=== PATIENT | female | born 1990 | race Caucasian/White ===

== ENCOUNTER 2021-06-15 07:57 | Inpatient (IN) ==
--- NOTE | 2021-06-15 08:22 | History & Physical Report ---
Date of Service June 15, 2021 Assessment & Plan (1) Normal in third trimester: History of Present Illness Chief Complaint: Labor Check Primary Care Provider: NO PCP 31yo Female here for labor check at 40wks. Denies bleeding or fluid discharge, regular movement and contractions. Has had regular care, no complications. Rubella non-immune. GBS -. Blood Type O Positive 11/06/20 Antibody Screen NEGATIVE 11/06/20 Hemoglobin 11.3 g/dL (12.0-16.0) L 03/27/21 Hematocrit 36.0 % (37-47) L 03/27/21 Mean Corpuscular Volume 86.7 fL (80-100) 11/06/20 Platelet Count 362 K/uL (130-400) 11/06/20 Rubella IgG Antibody Equivocal (Immune) L 11/06/20 Rapid Plasma Reagin Nonreactive (Nonreactive) 11/06/20 Hepatitis B Surface Antigen Neg (Neg) 11/06/20 HIV (1&2) Ab and P24 Ag, 4th Gener Neg (Neg) 11/06/20 Glucose 1 Hour 50 gm Load 143 mg/dl (70-130) H 03/27/21 OB Optional Labs: Chlamydia trachomatis RNA NOT DETECTED (NOT DETECTED) 11/06/20 Neisseria gonorrhoeae RNA NOT DETECTED (NOT DETECTED) 11/06/20 Allergies Allergy/AdvReac Type Severity Reaction Status Date / Time No Known Allergies Allergy Verified 06/12/21 10:30 Home Medications Medication Instructions Recorded Confirmed Type prenat.vits,sofie,qoc-[id number] 1 tab PO DAILY 10/26/20 06/15/21 History breast pump #1 ea 06/08/21 06/12/21 Rx Patient History Medical History Complete No known problems Surgical History H/O wisdom tooth extraction Family History Family/Other Breast cancer Maternal great grandmother Mother Thyroid cancer Denies family history of Ovarian cancer Colorectal cancer Uterine cancer Social History (Updated 06/15/21 @ 08:15 by Rowena Carrillo RN) Smoking Status: Never smoker Second Hand Exposure: No; Hx Alcohol Use: No Hx Substance Use: No Preferred Language: Swazi Communication Ability: Effective Visual Impairment: No Limitations Hearing Ability: Normal Insulation Sprayer Required: No Beliefs That Will Affect Care: None marital status: marital status details: Teto (28) [phone] Current Living Situation: Spouse Current Living Situation Comment: lives with spouse, 2 dogs, 2 cats, spouse to change litter. 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 Denies breast pain. Denies dysuria. Denies headache or changes in vision. Physical Exam Physical Exam: General: Alert, oriented. No acute distress. Cardiac: Regular rate and rhythm, no murmurs/rubs/gallops. Respiratory: Clear to auscultation bilaterally a/p, no wheezes/rales/rhonchi. No increased work of breathing. Symmetrical chest rise. No respiratory distress. Pelvic: Dilation 3 cm; Effacement 90; Station -[address] Meyer Lower Extremities: No lower extremity edema or swelling. No deep calf pain. Craig's negative bilaterally Baseline:130 Variability:moderate Accelerations:present Decelerations:none Results & Data ([facility]) Vital Signs (Past 12 Hours) Vital Signs Pulse BP 06/15/21 08:05 112 H 139/86 Supervising Physician Co-Signing Physician Notes Resident Physician Supervision Note: I interviewed and examined the patient. Discussed with Dr. Gil and agree with findings and plan as documented in the note. Any exceptions or clarifications are listed here: 31 y/o at 40 wga presents in labor. Initially was 3cm, progressed to 3-4 on nursing check approx 1hr later and was admitted. PNI: Rubella nonimmune. Pt desires epidural, continue expectant management. GBS neg Documented By: Carey Meyer MD Resident Activity Tracking Resident Involvement: Resident Care Provided Care Provided: [facility]
[2021-06-15] MEDS ORDERED: OXYTOCIN 30 UNITS/500 ML BAG IV PRN ×2 (09:30→20:49)
[2021-06-15 09:59] LABS: Hematocrit (blood only) 35.9 % (37-47); Hemoglobin 11.5 g/dL (12.0-16.0); Mean Corpuscular Hemoglobin 27.3 pg (25-34); Mean Corpuscular Volume 85.1 fL (80-100); Mean Platelet Volume 10.7 fL (7.4-10.4); Platelet Count 312 K/uL (130-400); RDW Coefficient of Variation 15.5 % (11.5-14.5); RDW Standard Deviation 47.7 fL (36.4-46.3); Red Blood Count 4.22 M/uL (4.2-5.4)
[2021-06-15] MEDS: LACTATED RINGER'S 1,000 ML IV PRN ×4 (10:21→22:29)
[2021-06-15] MEDS ORDERED: BUPIVACAINE 0.25% 30 ML VIAL ONE ×2 (10:23→16:55)
[2021-06-15] MEDS ORDERED: ePHEDrine sulfate 50 MG/ML AMP ONE (10:23)
[2021-06-15] MEDS ORDERED: SODIUM CHLORIDE 0.9% INJ 10 ML VIAL ONE ×2 (10:23→16:56)
[2021-06-15] MEDS ORDERED: fentaNYL citrate 100 MCG/2 ML VIAL ONE (10:24)
[2021-06-15] MEDS ORDERED: fentaNYL 2MCG/ML ROPIVACAINE 1.25MG/ML 100 ML BAG EPI ONE (10:26)
[2021-06-15] MEDS ORDERED: diphenhydrAMINE 50 MG/ML VIAL IV PRN (10:37)
[2021-06-15] MEDS ORDERED: NALBUPHINE HCL INJ 10 MG/ML AMP IV PRN (10:37)
[2021-06-15] MEDS ORDERED: ePHEDrine sulfate 50 MG/ML AMP IV PRN (10:37)
[2021-06-15] MEDS ORDERED: NALOXONE HCL 0.4 MG/1 ML VIAL/CARP IV PRN (10:37)
[2021-06-15] MEDS ORDERED: NALOXONE HCL 1 MG in SODIUM CHLORIDE 0.9% 1000ML 1,000 ML IV PRN (10:37)
--- NOTE | 2021-06-15 10:37 | Anesthesiology Consultation ---
Date of Service June 15, 2021 Assessment & Plan (1) Encounter for pre-operative examination: Chart Review Chart Review: Acceptable Risk for Surgery and Patient NOT seen in Pre Admission Testing Consults Requested none History Height/Weight Height: 5 ft 2 in Weight: 74.117 kg Allergies Allergy/AdvReac Type Severity Reaction Status Date / Time No Known Allergies Allergy Verified 06/12/21 10:30 Medications Home Medications Medication Instructions Recorded Confirmed Last Taken prenat.vits,sofie,dic-yssi-tvqqf 1 tab PO DAILY 10/26/20 06/15/21 06/14/21 21:00 breast pump #1 ea 06/08/21 06/12/21 Unknown Active Medications Generic Name Dose Route Start Last Admin Trade Name Freq PRN Reason Stop Dose Admin Lactated Ringer's 1,000 mls @ 125 mls/hr 06/15/21 09:30 06/15/21 10:21 Lr IV 06/17/21 09:29 999 mls/hr .Q8H PRN Administration L&D Protocol Protocol Past Medical History Medical History Complete No known problems Past Family History Family History Family/Other Breast cancer Maternal great grandmother Mother Thyroid cancer Denies family history of Ovarian cancer Colorectal cancer Uterine cancer Past Surgical History Surgical History H/O wisdom tooth extraction Social History Smoking Status: Never smoker Hx Alcohol Use: No Hx Substance Use: No substance use type: does not use Physical Exam Vital Signs Last Vital Signs Temp 98.1 F 06/15/21 08:27 Pulse 112 H 06/15/21 08:05 Resp 20 06/15/21 08:27 BP 139/86 06/15/21 08:05 Testing Laboratory Results 06/15/21 09:45
[2021-06-15] MEDS ORDERED: TERBUTALINE SULFATE 1 MG/ML VIAL ONE (11:17)
--- NOTE | 2021-06-15 13:38 | Labor Progress Brief Note ---
Date of Service June 15, 2021 Subjective Comfortable w/ epidural. Approx 2hrs ago had long decel shortly following epidural and period of spontaneous tachysystole, resolved w/ fluid and repositioning Assessment & Plan (1) : Plan: 31 y/o at 40 wga in labor VSS, somewhat tachy but suspect pt is dehydrated as urine output not much and pt has not had much PO intake Fetus cat 2 but reassuring Labor - progressing spontaneously, now s/p arom. Continue to monitor gbs neg epidural in place Admission and Anticipated Discharge Date Admission Date: June 15, 2021 Physical Exam Genitourinary: Manual OB Exam: + cervical dilation (4-5), + cervical effacement 80%, + station -2 and + amniotic fluid (AROM clear, ?thin mec) OB Exam Monitor Tracing: + external FHT monitor used, + external uterine monitor used (q3-7) and + category I (125/mod/+accel, variable noted w/ arom) Results & Data ([facility]) Vital Signs (Past 12 Hours) Vital Signs Temp Pulse Resp BP Pulse Ox 06/15/21 13:32 136 H 95 06/15/21 13:27 143 H 99 06/15/21 13:24 131 H 132/76 06/15/21 13:22 143 H 98 06/15/21 13:17 141 H 98 06/15/21 13:12 136 H 95 06/15/21 13:10 134 H 127/68 06/15/21 13:07 130 H 97 06/15/21 13:02 128 H 97 06/15/21 12:57 110 H 97 06/15/21 12:53 123 H 123/69 06/15/21 12:52 115 H 97 06/15/21 12:47 105 H 97 06/15/21 12:42 107 H 97 06/15/21 12:38 117 H 122/71 06/15/21 12:37 110 H 98 06/15/21 12:32 117 H 97 06/15/21 12:27 115 H 99 06/15/21 12:23 118 H 129/75 06/15/21 12:22 124 H 98 06/15/21 12:17 126 H 100 06/15/21 12:12 114 H 99 06/15/21 12:08 102 H 130/73 06/15/21 12:07 92 H 98 06/15/21 12:02 98 H 97 06/15/21 11:57 99 H 99 06/15/21 11:53 100 H 129/70 06/15/21 11:52 110 H 99 06/15/21 11:47 107 H 100 06/15/21 11:42 109 H 100 06/15/21 11:38 99 H 130/79 06/15/21 11:37 99 H 99 06/15/21 11:32 98 H 99 06/15/21 11:27 106 H 99 06/15/21 11:23 103 H 131/73 06/15/21 11:22 122 H 100 06/15/21 11:17 118 H 123/75 100 06/15/21 11:15 88 119/66 06/15/21 11:13 93 H 107/63 06/15/21 11:12 109 H 97 06/15/21 11:11 92 H 126/76 06/15/21 11:09 96 H 126/78 06/15/21 11:07 101 H 135/82 99 06/15/21 11:05 96 H 128/78 06/15/21 11:03 108 H 127/78 06/15/21 11:02 101 H 100 06/15/21 11:01 102 H 134/85 06/15/21 10:59 100 H 132/82 06/15/21 10:57 100 H 143/78 H 100 06/15/21 10:52 79 128/69 100 06/15/21 10:47 91 H 100 06/15/21 10:41 87 138/75 06/15/21 08:27 98.1 F 20 06/15/21 08:05 112 H 139/86 Coding Level of Care Code None Diagnoses Z34.90
--- NOTE | 2021-06-15 13:58 | Labor Progress Brief Note ---
Date of Service June 15, 2021 Subjective about 10 min following arom there was decel for about 5 min Assessment & Plan (1) : Plan: 31 y/o at 40 wga in labor VSS, somewhat tachy but suspect pt is dehydrated as urine output not much and pt has not had much PO intake Fetus cat 2 but reassuring Labor - progressing spontaneously, now s/p arom. decel x 5 min, resolved with repositioning to knee-chest, IVF, O2. Continue to monitor gbs neg epidural in place Admission and Anticipated Discharge Date Admission Date: June 15, 2021 Results & Data ([facility]) Vital Signs (Past 12 Hours) Vital Signs Temp Pulse Resp BP Pulse Ox 06/15/21 13:55 138 H 90 06/15/21 13:53 130 H 130/75 06/15/21 13:52 131 H 100 06/15/21 13:47 131 H 100 06/15/21 13:42 117 H 98 06/15/21 13:39 122 H 127/69 06/15/21 13:37 127 H 98 06/15/21 13:32 136 H 95 06/15/21 13:27 143 H 99 06/15/21 13:24 131 H 132/76 06/15/21 13:22 143 H 98 06/15/21 13:17 141 H 98 06/15/21 13:12 136 H 95 06/15/21 13:10 134 H 127/68 06/15/21 13:07 130 H 97 06/15/21 13:02 128 H 97 06/15/21 12:57 110 H 97 06/15/21 12:53 123 H 123/69 06/15/21 12:52 115 H 97 06/15/21 12:47 105 H 97 06/15/21 12:42 107 H 97 06/15/21 12:38 117 H 122/71 06/15/21 12:37 110 H 98 06/15/21 12:32 117 H 97 06/15/21 12:27 115 H 99 06/15/21 12:23 118 H 129/75 06/15/21 12:22 124 H 98 06/15/21 12:17 126 H 100 06/15/21 12:12 114 H 99 06/15/21 12:08 102 H 130/73 06/15/21 12:07 92 H 98 06/15/21 12:02 98 H 97 06/15/21 11:57 99 H 99 06/15/21 11:53 100 H 129/70 06/15/21 11:52 110 H 99 06/15/21 11:47 107 H 100 06/15/21 11:42 109 H 100 06/15/21 11:38 99 H 130/79 06/15/21 11:37 99 H 99 06/15/21 11:32 98 H 99 06/15/21 11:27 106 H 99 06/15/21 11:23 103 H 131/73 06/15/21 11:22 122 H 100 06/15/21 11:17 118 H 123/75 100 06/15/21 11:15 88 119/66 06/15/21 11:13 93 H 107/63 06/15/21 11:12 109 H 97 06/15/21 11:11 92 H 126/76 06/15/21 11:09 96 H 126/78 06/15/21 11:07 101 H 135/82 99 06/15/21 11:05 96 H 128/78 06/15/21 11:03 108 H 127/78 06/15/21 11:02 101 H 100 06/15/21 11:01 102 H 134/85 06/15/21 10:59 100 H 132/82 06/15/21 10:57 100 H 143/78 H 100 06/15/21 10:52 79 128/69 100 06/15/21 10:47 91 H 100 06/15/21 10:41 87 138/75 06/15/21 08:27 98.1 F 20 06/15/21 08:05 112 H 139/86 Coding Level of Care Code None Diagnoses Z34.90
[2021-06-15] MEDS: CALCIUM CARBONATE 500 MG CHEWABLE TAB PO PRN (17:46)
[2021-06-15] MEDS: fentaNYL 2MCG/ML ROPIVACAINE 1.25MG/ML 100 ML BAG EPI PRN (19:19)
--- NOTE | 2021-06-15 19:36 | Labor Progress Brief Note ---
Date of Service June 15, 2021 Subjective more comfortable w/ epidural settings changed, feeling some pressure Assessment & Plan (1) : Plan: 31 y/o at 40 wga in labor Pt remains tachycardic despite fluids. EKG was obtained and sinus tach, also reviewed w/ anesthesia as tachycardia seemed to really start shortly after epidural and they rec monitoring. Pt asymptomatic, O2 sat wnl so will monitor Fetus cat 1 Labor - Progressed to 5-6 by my exam, was previously called 6-7 by nursing. IUPC placed for more accurate monitoring, head feels ?asynclitic so will try extreme position changes and if needed start pit gbs neg epidural in place Admission and Anticipated Discharge Date Admission Date: June 15, 2021 Physical Exam Genitourinary: Manual OB Exam: + cervical dilation (5-6), + cervical effacement 80% and + station -1 OB Exam Monitor Tracing: + external FHT monitor used, + external uterine monitor used (q2-6, IUPC placed) and + category I (140/mod/+accel/-decel) Results & Data ([facility]) Vital Signs (Past 12 Hours) Vital Signs Temp Pulse Resp BP Pulse Ox 06/15/21 19:30 134 H 100 06/15/21 19:25 134 H 100 06/15/21 19:23 139 H 129/65 06/15/21 19:20 139 H 100 06/15/21 19:15 136 H 100 06/15/21 19:10 145 H 100 06/15/21 19:09 141 H 129/63 06/15/21 19:05 136 H 100 06/15/21 19:00 133 H 100 06/15/21 18:55 129 H 100 06/15/21 18:53 129 H 134/63 06/15/21 18:50 121 H 100 06/15/21 18:45 124 H 100 06/15/21 18:40 135 H 100 06/15/21 18:38 133 H 129/67 06/15/21 18:35 135 H 100 06/15/21 18:30 132 H 100 06/15/21 18:25 135 H 100 06/15/21 18:23 139 H 130/66 06/15/21 18:20 141 H 100 06/15/21 18:15 142 H 100 06/15/21 18:10 133 H 100 06/15/21 18:08 99.1 F 136 H 20 125/65 06/15/21 18:05 140 H 100 06/15/21 18:00 147 H 100 06/15/21 17:55 148 H 100 06/15/21 17:53 146 H 134/73 06/15/21 17:50 149 H 100 06/15/21 17:45 141 H 100 06/15/21 17:40 142 H 100 06/15/21 17:38 134 H 139/70 06/15/21 17:35 135 H 100 06/15/21 17:30 129 H 100 06/15/21 17:25 133 H 100 06/15/21 17:24 136 H 131/70 06/15/21 17:20 132 H 100 06/15/21 17:15 128 H 100 06/15/21 17:10 135 H 100 06/15/21 17:09 134 H 131/72 06/15/21 17:05 138 H 100 06/15/21 17:00 132 H 100 06/15/21 16:55 125 H 100 06/15/21 16:54 99.1 F 130 H 22 139/74 06/15/21 16:50 134 H 100 06/15/21 16:45 142 H 100 06/15/21 16:40 133 H 99 06/15/21 16:38 127 H 114/64 06/15/21 16:35 136 H 100 06/15/21 16:30 123 H 100 06/15/21 16:25 119 H 100 06/15/21 16:24 125 H 103/59 L 06/15/21 16:20 127 H 100 06/15/21 16:15 130 H 100 06/15/21 16:10 125 H 114/63 100 06/15/21 16:08 98.6 F 127 H 20 112/59 L 06/15/21 16:05 126 H 100 06/15/21 16:00 127 H 100 06/15/21 15:55 137 H 100 06/15/21 15:54 139 H 128/87 06/15/21 15:50 134 H 99 06/15/21 15:45 122 H 100 06/15/21 15:40 124 H 100 06/15/21 15:39 131 H 134/73 06/15/21 15:35 127 H 100 02/04/22 15:30 130 H 100 06/15/21 15:25 141 H 99 06/15/21 15:24 136 H 131/82 06/15/21 15:20 128 H 100 06/15/21 15:14 122 H 93 06/15/21 15:10 130 H 132/60 06/15/21 15:09 120 H 94 06/15/21 15:04 127 H 97 06/15/21 15:01 126 H 90 06/15/21 14:59 122 H 97 06/15/21 14:54 122 H 98 06/15/21 14:53 125 H 114/55 L 06/15/21 14:51 128 H 92 06/15/21 14:49 123 H 95 06/15/21 14:44 120 H 94 06/15/21 14:39 132 H 141/76 H 91 06/15/21 14:35 125 H 91 06/15/21 14:34 120 H 93 06/15/21 14:30 122 H 94 06/15/21 14:29 121 H 96 06/15/21 14:24 130 H 127/67 93 06/15/21 14:12 129 H 100 06/15/21 14:09 98.1 F 133 H 20 125/75 06/15/21 14:07 130 H 100 06/15/21 14:02 136 H 100 06/15/21 13:57 137 H 98 06/15/21 13:55 138 H 90 06/15/21 13:53 130 H 130/75 06/15/21 13:52 131 H 100 06/15/21 13:47 131 H 100 06/15/21 13:42 117 H 98 06/15/21 13:39 122 H 127/69 06/15/21 13:37 127 H 98 06/15/21 13:32 136 H 95 06/15/21 13:27 143 H 99 06/15/21 13:24 131 H 132/76 06/15/21 13:22 143 H 98 06/15/21 13:17 141 H 98 06/15/21 13:12 136 H 95 06/15/21 13:10 134 H 127/68 06/15/21 13:07 130 H 97 06/15/21 13:02 128 H 97 06/15/21 12:57 110 H 97 06/15/21 12:53 123 H 123/69 06/15/21 12:52 115 H 97 06/15/21 12:47 105 H 97 06/15/21 12:42 107 H 97 06/15/21 12:38 117 H 122/71 06/15/21 12:37 110 H 98 06/15/21 12:32 117 H 97 06/15/21 12:27 115 H 99 06/15/21 12:23 118 H 129/75 06/15/21 12:22 124 H 98 06/15/21 12:17 126 H 100 06/15/21 12:12 114 H 99 06/15/21 12:08 97.9 F 102 H 18 130/73 06/15/21 12:07 92 H 98 06/15/21 12:02 98 H 97 06/15/21 11:57 99 H 99 06/15/21 11:53 100 H 129/70 06/15/21 11:52 110 H 99 06/15/21 11:47 107 H 100 06/15/21 11:42 109 H 100 06/15/21 11:38 99 H 130/79 06/15/21 11:37 99 H 99 06/15/21 11:32 98 H 99 06/15/21 11:27 106 H 99 06/15/21 11:23 103 H 131/73 06/15/21 11:22 122 H 100 06/15/21 11:17 118 H 123/75 100 06/15/21 11:15 88 119/66 06/15/21 11:13 93 H 107/63 06/15/21 11:12 109 H 97 06/15/21 11:11 92 H 126/76 06/15/21 11:09 96 H 126/78 06/15/21 11:07 101 H 135/82 99 06/15/21 11:05 96 H 128/78 06/15/21 11:03 108 H 127/78 06/15/21 11:02 101 H 100 06/15/21 11:01 102 H 134/85 06/15/21 10:59 100 H 132/82 06/15/21 10:57 100 H 143/78 H 100 06/15/21 10:52 79 128/69 100 06/15/21 10:47 91 H 100 02/04/22 10:41 87 138/75 06/15/21 08:27 98.1 F 20 06/15/21 08:05 112 H 139/86 Coding Level of Care Code None Diagnoses Z34.90
--- NOTE | 2021-06-16 00:53 | Labor Progress Brief Note ---
Date of Service June 16, 2021 Subjective Still feeling pressure intermittently but able to rest Assessment & Plan (1) : Plan: 31 y/o at 40 wga in labor Stable tachycardia, periods of improvement while pt able to sleep, continue to monitor Fetus cat 1 Labor - Had to start pit shortly after iupc placed as ctx spaced out and were not adequate when occurring. Pit nearing adequate but w/ repositioning and pit has had good progression so will continue to augment gbs neg epidural in place Admission and Anticipated Discharge Date Admission Date: June 15, 2021 Physical Exam Genitourinary: Manual OB Exam: + cervical dilation (7-8), + cervical effacement 80% and + station 0 OB Exam Monitor Tracing: + external FHT monitor used, + intra-uterine pressure catheter used (q3, nearing adequate but not quite) and + category I (130/mod/+accel/-decel) Results & Data ([facility]) Vital Signs (Past 12 Hours) Vital Signs Temp Pulse Resp BP Pulse Ox 06/16/21 00:47 155 H 77 L 06/16/21 00:40 125 H 100 06/16/21 00:39 115 H 118/66 06/16/21 00:35 106 H 98 06/16/21 00:30 115 H 16 100 06/16/21 00:25 117 H 116/65 99 06/16/21 00:20 99.3 F 127 H 16 98 06/16/21 00:15 97 H 95 06/16/21 00:10 100 H 95 06/16/21 00:09 103 H 102/57 L 06/16/21 00:05 99 H 94 06/16/21 00:00 98 H 16 96 06/15/21 23:55 108 H 96 06/15/21 23:53 101 H 105/57 L 06/15/21 23:50 101 H 96 06/15/21 23:45 97 H 96 06/15/21 23:40 97 H 96 06/15/21 23:39 102 H 100/57 L 06/15/21 23:35 100 H 97 06/15/21 23:30 97 H 16 97 06/15/21 23:25 102 H 98 06/15/21 23:24 110 H 110/56 L 06/15/21 23:20 109 H 99 06/15/21 23:15 117 H 16 100 0204/22 23:10 103 H 99 06/15/21 23:09 112 H 103/57 L 06/15/21 23:05 97 H 97 06/15/21 23:00 99 H 16 98 06/15/21 22:55 104 H 98 06/15/21 22:54 107 H 97/56 L 06/15/21 22:50 98 H 99 06/15/21 22:45 104 H 16 100 06/15/21 22:40 110 H 108/58 L 100 06/15/21 22:35 115 H 100 06/15/21 22:30 99.5 F 121 H 16 100 06/15/21 22:25 129 H 100 06/15/21 22:23 134 H 130/65 06/15/21 22:20 130 H 100 06/15/21 22:15 124 H 100 06/15/21 22:10 134 H 100 06/15/21 22:09 129 H 130/73 06/15/21 22:05 132 H 100 06/15/21 22:00 131 H 16 100 06/15/21 21:55 145 H 100 06/15/21 21:53 141 H 129/76 06/15/21 21:50 130 H 100 06/15/21 21:45 132 H 16 100 06/15/21 21:40 135 H 100 06/15/21 21:39 130 H 131/71 06/15/21 21:35 132 H 100 06/15/21 21:30 133 H 16 99 06/15/21 21:25 128 H 124/70 100 06/15/21 21:20 125 H 100 06/15/21 21:15 124 H 16 100 06/15/21 21:10 119 H 100 06/15/21 21:09 125 H 120/68 06/15/21 21:05 127 H 100 06/15/21 21:00 130 H 16 100 06/15/21 20:55 118 H 100 06/15/21 20:53 126 H 121/70 06/15/21 20:50 121 H 100 06/15/21 20:45 128 H 100 06/15/21 20:40 99.1 F 123 H 16 121/71 100 06/15/21 20:35 124 H 100 06/15/21 20:30 129 H 16 100 06/15/21 20:26 121 H 120/63 06/15/21 20:25 133 H 100 06/15/21 20:20 123 H 100 06/15/21 20:15 130 H 16 100 06/15/21 20:10 133 H 100 06/15/21 20:09 133 H 134/79 06/15/21 20:05 131 H 100 06/15/21 20:00 129 H 16 100 06/15/21 19:55 132 H 99 06/15/21 19:53 133 H 133/81 06/15/21 19:50 128 H 100 06/15/21 19:45 127 H 16 100 06/15/21 19:40 125 H 100 06/15/21 19:38 129 H 131/75 06/15/21 19:35 135 H 100 06/15/21 19:30 134 H 16 100 06/15/21 19:25 134 H 100 06/15/21 19:23 139 H 129/65 06/15/21 19:20 139 H 100 06/15/21 19:15 136 H 100 06/15/21 19:10 145 H 100 06/15/21 19:09 141 H 129/63 06/15/21 19:05 136 H 100 06/15/21 19:00 133 H 100 06/15/21 18:55 129 H 100 06/15/21 18:53 129 H 134/63 06/15/21 18:50 121 H 100 06/15/21 18:45 124 H 100 06/15/21 18:40 135 H 100 06/15/21 18:38 133 H 129/67 06/15/21 18:35 135 H 100 06/15/21 18:30 132 H 100 06/15/21 18:25 135 H 100 06/15/21 18:23 139 H 130/66 06/15/21 18:20 141 H 100 06/15/21 18:15 142 H 100 06/15/21 18:10 133 H 100 06/15/21 18:08 99.1 F 136 H 20 125/65 06/15/21 18:05 140 H 100 06/15/21 18:00 147 H 100 06/15/21 17:55 148 H 100 06/15/21 17:53 146 H 134/73 06/15/21 17:50 149 H 100 0204/22 17:45 141 H 100 06/15/21 17:40 142 H 100 06/15/21 17:38 134 H 139/70 06/15/21 17:35 135 H 100 06/15/21 17:30 129 H 100 06/15/21 17:25 133 H 100 06/15/21 17:24 136 H 131/70 06/15/21 17:20 132 H 100 06/15/21 17:15 128 H 100 06/15/21 17:10 135 H 100 06/15/21 17:09 134 H 131/72 06/15/21 17:05 138 H 100 06/15/21 17:00 132 H 100 06/15/21 16:55 125 H 100 06/15/21 16:54 99.1 F 130 H 22 139/74 06/15/21 16:50 134 H 100 06/15/21 16:45 142 H 100 06/15/21 16:40 133 H 99 06/15/21 16:38 127 H 114/64 06/15/21 16:35 136 H 100 06/15/21 16:30 123 H 100 06/15/21 16:25 119 H 100 06/15/21 16:24 125 H 103/59 L 06/15/21 16:20 127 H 100 06/15/21 16:15 130 H 100 06/15/21 16:10 125 H 114/63 100 06/15/21 16:08 98.6 F 127 H 20 112/59 L 06/15/21 16:05 126 H 100 06/15/21 16:00 127 H 100 06/15/21 15:55 137 H 100 06/15/21 15:54 139 H 128/87 06/15/21 15:50 134 H 99 06/15/21 15:45 122 H 100 06/15/21 15:40 124 H 100 06/15/21 15:39 131 H 134/73 06/15/21 15:35 127 H 100 06/15/21 15:30 130 H 100 06/15/21 15:25 141 H 99 06/15/21 15:24 136 H 131/82 06/15/21 15:20 128 H 100 06/15/21 15:14 122 H 93 06/15/21 15:10 130 H 132/60 02/04/22 15:09 120 H 94 06/15/21 15:04 127 H 97 06/15/21 15:01 126 H 90 06/15/21 14:59 122 H 97 06/15/21 14:54 122 H 98 06/15/21 14:53 125 H 114/55 L 06/15/21 14:51 128 H 92 06/15/21 14:49 123 H 95 06/15/21 14:44 120 H 94 06/15/21 14:39 132 H 141/76 H 91 06/15/21 14:35 125 H 91 06/15/21 14:34 120 H 93 06/15/21 14:30 122 H 94 06/15/21 14:29 121 H 96 06/15/21 14:24 130 H 127/67 93 06/15/21 14:12 129 H 100 06/15/21 14:09 98.1 F 133 H 20 125/75 06/15/21 14:07 130 H 100 06/15/21 14:02 136 H 100 06/15/21 13:57 137 H 98 06/15/21 13:55 138 H 90 06/15/21 13:53 130 H 130/75 06/15/21 13:52 131 H 100 06/15/21 13:47 131 H 100 06/15/21 13:42 117 H 98 06/15/21 13:39 122 H 127/69 06/15/21 13:37 127 H 98 06/15/21 13:32 136 H 95 06/15/21 13:27 143 H 99 06/15/21 13:24 131 H 132/76 06/15/21 13:22 143 H 98 06/15/21 13:17 141 H 98 06/15/21 13:12 136 H 95 06/15/21 13:10 134 H 127/68 06/15/21 13:07 130 H 97 06/15/21 13:02 128 H 97 06/15/21 12:57 110 H 97 06/15/21 12:53 123 H 123/69 06/15/21 12:52 115 H 97 Coding Level of Care Code None Diagnoses Z34.90
[2021-06-16] MEDS: fentaNYL 2MCG/ML ROPIVACAINE 1.25MG/ML 100 ML BAG EPI PRN ×2 (02:01→08:06)
[2021-06-16] MEDS ORDERED: fentaNYL citrate 100 MCG/2 ML VIAL ONE (02:29)
[2021-06-16] MEDS ORDERED: SODIUM CHLORIDE 0.9% INJ 10 ML VIAL ONE (02:29)
[2021-06-16] MEDS ORDERED: BUPIVACAINE 0.25% 30 ML VIAL ONE (02:29)
[2021-06-16] MEDS: LACTATED RINGER'S 1,000 ML IV PRN (03:20)
--- NOTE | 2021-06-16 07:00 | Labor Progress Brief Note ---
Date of Service June 16, 2021 Subjective Feeling more constant pressure, got epidural redosed and pain improved Assessment & Plan (1) : Plan: 31 y/o at 42 wga in labor Stable tachycardia, periods of improvement while pt able to sleep, continue to monitor Fetus cat 1 Labor - Anterior lip, had break from peanut ball while very uncomfortable per nursing so now that comfortable will put back to try to get lip to go away, attempted to reduce but unable to currently gbs neg epidural in place Admission and Anticipated Discharge Date Admission Date: June 15, 2021 Physical Exam Genitourinary: Manual OB Exam: + cervical dilation (9.5), + cervical effacement 90% and + station 0 OB Exam Monitor Tracing: + external FHT monitor used, + intra-uterine pressure catheter used (q3) and + category I (125/mod/+accel/+early decels) Results & Data ([facility]) Vital Signs (Past 12 Hours) Vital Signs Temp Pulse Resp BP Pulse Ox 06/16/21 06:54 121 H 130/85 06/16/21 06:52 119 H 99 06/16/21 06:47 115 H 99 06/16/21 06:42 121 H 100 06/16/21 06:39 116 H 125/72 06/16/21 06:37 102 H 98 06/16/21 06:32 109 H 98 06/16/21 06:27 114 H 98 06/16/21 06:25 118 H 127/75 06/16/21 06:22 125 H 99 06/16/21 06:17 111 H 98 06/16/21 06:15 16 06/16/21 06:12 115 H 97 06/16/21 06:08 120 H 123/69 06/16/21 06:07 104 H 97 06/16/21 06:02 114 H 98 06/16/21 05:58 98.8 F 16 06/16/21 05:57 119 H 95 06/16/21 05:53 125 H 119/75 06/16/21 05:52 120 H 97 06/16/21 05:47 121 H 98 06/16/21 05:42 112 H 97 06/16/21 05:39 117 H 113/67 06/16/21 05:37 114 H 98 06/16/21 05:32 109 H 98 06/16/21 05:30 16 02/05/22 05:27 104 H 97 06/16/21 05:23 116 H 124/64 06/16/21 05:22 101 H 97 06/16/21 05:17 120 H 97 06/16/21 05:15 16 06/16/21 05:12 110 H 98 06/16/21 05:09 112 H 124/58 L 06/16/21 05:07 120 H 98 06/16/21 05:02 105 H 97 06/16/21 04:57 113 H 97 06/16/21 04:53 109 H 122/60 06/16/21 04:52 110 H 98 06/16/21 04:47 113 H 97 06/16/21 04:42 114 H 98 06/16/21 04:39 112 H 122/67 06/16/21 04:37 110 H 97 06/16/21 04:32 110 H 99 06/16/21 04:30 99.5 F 16 06/16/21 04:27 119 H 99 06/16/21 04:23 118 H 110/68 06/16/21 04:22 110 H 98 06/16/21 04:17 102 H 98 06/16/21 04:12 110 H 98 06/16/21 04:09 118 H 106/65 06/16/21 04:07 117 H 99 06/16/21 04:02 119 H 98 06/16/21 04:00 16 06/16/21 03:57 97 H 97 06/16/21 03:53 110 H 108/56 L 06/16/21 03:52 98 H 97 06/16/21 03:47 97 H 97 06/16/21 03:42 94 H 98 06/16/21 03:38 103 H 106/55 L 06/16/21 03:37 101 H 98 06/16/21 03:32 98 H 98 06/16/21 03:30 16 06/16/21 03:27 101 H 99 06/16/21 03:24 131 H 132/64 06/16/21 03:22 135 H 100 06/16/21 03:17 145 H 100 06/16/21 03:15 16 06/16/21 03:12 127 H 100 06/16/21 03:10 100 H 113/57 L 06/16/21 03:07 104 H 100 06/16/21 03:02 104 H 100 06/16/21 02:57 90 100 06/16/21 02:54 104 H 111/60 06/16/21 02:52 91 H 100 06/16/21 02:47 110 H 126/60 100 06/16/21 02:44 106 H 89 L 06/16/21 02:42 105 H 100 06/16/21 02:40 118 H 128/70 06/16/21 02:39 113 H 138/79 06/16/21 02:37 117 H 100 06/16/21 02:36 107 H 138/86 06/16/21 02:35 111 H 86 L 06/16/21 02:34 116 H 137/82 06/16/21 02:32 118 H 99 06/16/21 02:30 18 06/16/21 02:27 116 H 100 06/16/21 02:24 98.2 F 117 H 18 134/80 06/16/21 02:22 117 H 100 06/16/21 02:17 111 H 97 06/16/21 02:12 108 H 97 06/16/21 02:09 108 H 140/77 06/16/21 02:07 107 H 98 06/16/21 02:02 111 H 98 06/16/21 01:57 105 H 98 06/16/21 01:54 111 H 133/76 06/16/21 01:52 107 H 98 06/16/21 01:47 118 H 99 06/16/21 01:45 16 06/16/21 01:42 116 H 98 06/16/21 01:38 116 H 130/72 06/16/21 01:37 113 H 98 06/16/21 01:32 110 H 98 06/16/21 01:30 16 06/16/21 01:27 107 H 98 06/16/21 01:23 114 H 127/74 06/16/21 01:22 109 H 98 06/16/21 01:17 109 H 98 06/16/21 01:12 111 H 99 06/16/21 01:10 125 H 133/73 06/16/21 01:07 108 H 98 06/16/21 01:02 103 H 98 06/16/21 01:00 16 06/16/21 00:57 116 H 98 06/16/21 00:53 122 H 128/80 06/16/21 00:52 119 H 97 06/16/21 00:47 155 H 77 L 06/16/21 00:40 125 H 100 06/16/21 00:39 115 H 118/66 06/16/21 00:35 106 H 98 06/16/21 00:30 115 H 16 100 06/16/21 00:25 117 H 116/65 99 06/16/21 00:20 99.3 F 127 H 16 98 06/16/21 00:15 97 H 95 06/16/21 00:10 100 H 95 06/16/21 00:09 103 H 102/57 L 06/16/21 00:05 99 H 94 06/16/21 00:00 98 H 16 96 06/15/21 23:55 108 H 96 06/15/21 23:53 101 H 105/57 L 06/15/21 23:50 101 H 96 06/15/21 23:45 97 H 96 06/15/21 23:40 97 H 96 06/15/21 23:39 102 H 100/57 L 06/15/21 23:35 100 H 97 06/15/21 23:30 97 H 16 97 06/15/21 23:25 102 H 98 06/15/21 23:24 110 H 110/56 L 06/15/21 23:20 109 H 99 06/15/21 23:15 117 H 16 100 06/15/21 23:10 103 H 99 06/15/21 23:09 112 H 103/57 L 06/15/21 23:05 97 H 97 06/15/21 23:00 99 H 16 98 06/15/21 22:55 104 H 98 06/15/21 22:54 107 H 97/56 L 06/15/21 22:50 98 H 99 06/15/21 22:45 104 H 16 100 06/15/21 22:40 110 H 108/58 L 100 06/15/21 22:35 115 H 100 06/15/21 22:30 99.5 F 121 H 16 100 06/15/21 22:25 129 H 100 06/15/21 22:23 134 H 130/65 06/15/21 22:20 130 H 100 06/15/21 22:15 124 H 100 06/15/21 22:10 134 H 100 06/15/21 22:09 129 H 130/73 06/15/21 22:05 132 H 100 06/15/21 22:00 131 H 16 100 06/15/21 21:55 145 H 100 06/15/21 21:53 141 H 129/76 06/15/21 21:50 130 H 100 06/15/21 21:45 132 H 16 100 06/15/21 21:40 135 H 100 06/15/21 21:39 130 H 131/71 06/15/21 21:35 132 H 100 06/15/21 21:30 133 H 16 99 06/15/21 21:25 128 H 124/70 100 06/15/21 21:20 125 H 100 06/15/21 21:15 124 H 16 100 06/15/21 21:10 119 H 100 06/15/21 21:09 125 H 120/68 06/15/21 21:05 127 H 100 06/15/21 21:00 130 H 16 100 06/15/21 20:55 118 H 100 06/15/21 20:53 126 H 121/70 06/15/21 20:50 121 H 100 06/15/21 20:45 128 H 100 06/15/21 20:40 99.1 F 123 H 16 121/71 100 06/15/21 20:35 124 H 100 06/15/21 20:30 129 H 16 100 06/15/21 20:26 121 H 120/63 06/15/21 20:25 133 H 100 06/15/21 20:20 123 H 100 06/15/21 20:15 130 H 16 100 06/15/21 20:10 133 H 100 06/15/21 20:09 133 H 134/79 06/15/21 20:05 131 H 100 06/15/21 20:00 129 H 16 100 06/15/21 19:55 132 H 99 06/15/21 19:53 133 H 133/81 06/15/21 19:50 128 H 100 06/15/21 19:45 127 H 16 100 06/15/21 19:40 125 H 100 06/15/21 19:38 129 H 131/75 06/15/21 19:35 135 H 100 06/15/21 19:30 134 H 16 100 06/15/21 19:25 134 H 100 06/15/21 19:23 139 H 129/65 06/15/21 19:20 139 H 100 06/15/21 19:15 136 H 100 06/15/21 19:10 145 H 100 06/15/21 19:09 141 H 129/63 06/15/21 19:05 136 H 100 06/15/21 19:00 133 H 100 Coding Level of Care Code None Diagnoses Z34.90
--- NOTE | 2021-06-16 08:49 | Labor Progress Brief Note ---
Date of Service June 16, 2021 Subjective Patient is actively pushing, started about 0820. Feeling urge to push with ctx. FHT 110-120s, mod nessa, +accels, decels with pushes Ctx Q 2-3 SVE complete, 1+ station Continue pushing. Assessment & Plan Admission and Anticipated Discharge Date Admission Date: June 15, 2021 Results & Data ([facility]) Vital Signs (Past 12 Hours) Vital Signs Temp Pulse Resp BP Pulse Ox 06/16/21 08:42 112 H 98 06/16/21 08:39 138 H 90 06/16/21 08:37 116 H 98 06/16/21 08:32 115 H 98 06/16/21 08:27 113 H 98 06/16/21 08:22 118 H 97 06/16/21 08:17 106 H 99 06/16/21 08:13 36.5 C 18 98 06/16/21 08:12 117 H 99 06/16/21 08:07 113 H 99 06/16/21 08:02 116 H 99 06/16/21 07:57 114 H 99 06/16/21 07:52 112 H 98 06/16/21 07:47 115 H 99 06/16/21 07:42 110 H 99 06/16/21 07:39 114 H 122/71 06/16/21 07:37 121 H 99 06/16/21 07:32 115 H 99 06/16/21 07:27 129 H 98 06/16/21 07:23 130 H 122/69 06/16/21 07:22 125 H 99 06/16/21 07:17 137 H 100 06/16/21 07:12 119 H 100 06/16/21 07:09 126 H 125/75 06/16/21 07:07 125 H 100 06/16/21 07:02 119 H 100 06/16/21 07:00 16 06/16/21 06:57 116 H 99 06/16/21 06:54 121 H 130/85 06/16/21 06:52 119 H 99 06/16/21 06:47 115 H 99 06/16/21 06:42 121 H 100 06/16/21 06:39 116 H 125/72 06/16/21 06:37 102 H 98 06/16/21 06:32 109 H 98 06/16/21 06:27 114 H 98 02/05/22 06:25 118 H 127/75 06/16/21 06:22 125 H 99 06/16/21 06:17 111 H 98 06/16/21 06:15 16 06/16/21 06:12 115 H 97 06/16/21 06:08 120 H 123/69 06/16/21 06:07 104 H 97 06/16/21 06:02 114 H 98 06/16/21 05:58 37.1 C 16 06/16/21 05:57 119 H 95 06/16/21 05:53 125 H 119/75 06/16/21 05:52 120 H 97 06/16/21 05:47 121 H 98 06/16/21 05:42 112 H 97 06/16/21 05:39 117 H 113/67 06/16/21 05:37 114 H 98 06/16/21 05:32 109 H 98 06/16/21 05:30 16 06/16/21 05:27 104 H 97 06/16/21 05:23 116 H 124/64 06/16/21 05:22 101 H 97 06/16/21 05:17 120 H 97 06/16/21 05:15 16 06/16/21 05:12 110 H 98 06/16/21 05:09 112 H 124/58 L 06/16/21 05:07 120 H 98 06/16/21 05:02 105 H 97 06/16/21 04:57 113 H 97 06/16/21 04:53 109 H 122/60 06/16/21 04:52 110 H 98 06/16/21 04:47 113 H 97 06/16/21 04:42 114 H 98 06/16/21 04:39 112 H 122/67 06/16/21 04:37 110 H 97 06/16/21 04:32 110 H 99 06/16/21 04:30 37.5 C 16 06/16/21 04:27 119 H 99 06/16/21 04:23 118 H 110/68 06/16/21 04:22 110 H 98 06/16/21 04:17 102 H 98 06/16/21 04:12 110 H 98 06/16/21 04:09 118 H 106/65 06/16/21 04:07 117 H 99 06/16/21 04:02 119 H 98 06/16/21 04:00 16 06/16/21 03:57 97 H 97 06/16/21 03:53 110 H 108/56 L 06/16/21 03:52 98 H 97 06/16/21 03:47 97 H 97 06/16/21 03:42 94 H 98 06/16/21 03:38 103 H 106/55 L 06/16/21 03:37 101 H 98 06/16/21 03:32 98 H 98 06/16/21 03:30 16 06/16/21 03:27 101 H 99 06/16/21 03:24 131 H 132/64 06/16/21 03:22 135 H 100 06/16/21 03:17 145 H 100 06/16/21 03:15 16 06/16/21 03:12 127 H 100 06/16/21 03:10 100 H 113/57 L 06/16/21 03:07 104 H 100 06/16/21 03:02 104 H 100 06/16/21 02:57 90 100 06/16/21 02:54 104 H 111/60 06/16/21 02:52 91 H 100 06/16/21 02:47 110 H 126/60 100 06/16/21 02:44 106 H 89 L 06/16/21 02:42 105 H 100 06/16/21 02:40 118 H 128/70 06/16/21 02:39 113 H 138/79 06/16/21 02:37 117 H 100 06/16/21 02:36 107 H 138/86 06/16/21 02:35 111 H 86 L 06/16/21 02:34 116 H 137/82 06/16/21 02:32 118 H 99 06/16/21 02:30 18 06/16/21 02:27 116 H 100 06/16/21 02:24 36.8 C 117 H 18 134/80 06/16/21 02:22 117 H 100 06/16/21 02:17 111 H 97 06/16/21 02:12 108 H 97 06/16/21 02:09 108 H 140/77 06/16/21 02:07 107 H 98 06/16/21 02:02 111 H 98 06/16/21 01:57 105 H 98 06/16/21 01:54 111 H 133/76 06/16/21 01:52 107 H 98 06/16/21 01:47 118 H 99 06/16/21 01:45 16 06/16/21 01:42 116 H 98 06/16/21 01:38 116 H 130/72 06/16/21 01:37 113 H 98 06/16/21 01:32 110 H 98 06/16/21 01:30 16 06/16/21 01:27 107 H 98 06/16/21 01:23 114 H 127/74 06/16/21 01:22 109 H 98 06/16/21 01:17 109 H 98 06/16/21 01:12 111 H 99 06/16/21 01:10 125 H 133/73 06/16/21 01:07 108 H 98 06/16/21 01:02 103 H 98 06/16/21 01:00 16 06/16/21 00:57 116 H 98 06/16/21 00:53 122 H 128/80 06/16/21 00:52 119 H 97 06/16/21 00:47 155 H 77 L 06/16/21 00:40 125 H 100 06/16/21 00:39 115 H 118/66 06/16/21 00:35 106 H 98 06/16/21 00:30 115 H 16 100 06/16/21 00:25 117 H 116/65 99 06/16/21 00:20 37.4 C 127 H 16 98 06/16/21 00:15 97 H 95 06/16/21 00:10 100 H 95 06/16/21 00:09 103 H 102/57 L 06/16/21 00:05 99 H 94 06/16/21 00:00 98 H 16 96 06/15/21 23:55 108 H 96 06/15/21 23:53 101 H 105/57 L 06/15/21 23:50 101 H 96 06/15/21 23:45 97 H 96 06/15/21 23:40 97 H 96 06/15/21 23:39 102 H 100/57 L 06/15/21 23:35 100 H 97 06/15/21 23:30 97 H 16 97 06/15/21 23:25 102 H 98 06/15/21 23:24 110 H 110/56 L 06/15/21 23:20 109 H 99 06/15/21 23:15 117 H 16 100 06/15/21 23:10 103 H 99 06/15/21 23:09 112 H 103/57 L 06/15/21 23:05 97 H 97 06/15/21 23:00 99 H 16 98 06/15/21 22:55 104 H 98 06/15/21 22:54 107 H 97/56 L 06/15/21 22:50 98 H 99 06/15/21 22:45 104 H 16 100 06/15/21 22:40 110 H 108/58 L 100 06/15/21 22:35 115 H 100 06/15/21 22:30 37.5 C 121 H 16 100 06/15/21 22:25 129 H 100 06/15/21 22:23 134 H 130/65 06/15/21 22:20 130 H 100 06/15/21 22:15 124 H 100 06/15/21 22:10 134 H 100 06/15/21 22:09 129 H 130/73 06/15/21 22:05 132 H 100 06/15/21 22:00 131 H 16 100 06/15/21 21:55 145 H 100 06/15/21 21:53 141 H 129/76 06/15/21 21:50 130 H 100 06/15/21 21:45 132 H 16 100 06/15/21 21:40 135 H 100 06/15/21 21:39 130 H 131/71 06/15/21 21:35 132 H 100 06/15/21 21:30 133 H 16 99 06/15/21 21:25 128 H 124/70 100 06/15/21 21:20 125 H 100 06/15/21 21:15 124 H 16 100 06/15/21 21:10 119 H 100 06/15/21 21:09 125 H 120/68 06/15/21 21:05 127 H 100 06/15/21 21:00 130 H 16 100 06/15/21 20:55 118 H 100 06/15/21 20:53 126 H 121/70 06/15/21 20:50 121 H 100 Coding Level of Care Code None
[2021-06-16] MEDS: CALCIUM CARBONATE 500 MG CHEWABLE TAB PO PRN (08:58)
--- NOTE | 2021-06-16 09:53 | Electrocardiogram Report ---
Test Reason : Blood Pressure : / mmHG Vent. Rate : 145 BPM Atrial Rate : 145 BPM P-R Int : 132 ms QRS Dur : 074 ms QT Int : 268 ms P-R-T Axes : 052 039 048 degrees QTc Int : 416 ms Sinus tachycardia Diffuse Nonspecific ST abnormality Abnormal ECG No previous ECGs available Confirmed by Orlando Kee ([id number] on 06/16/2021 9:53:14 AM Referred By: REFERRED SELF Confirmed By:Orlando Kee
--- NOTE | 2021-06-16 11:07 | Labor Progress Brief Note ---
Date of Service June 16, 2021 Subjective Patient had been pushing, pushed about 2 hours. Was complaining of hip pain, rec'd re-dose of epidural. Now she is sleeping in room, relieved that pain is now improved. FHT Cat 1 [place] Q 2 SVE complete/+1 per RN Will let pt rest briefly with pain relief, then will start pushing again. If no improvement with station with more pushing, may need to consider delivery via . Assessment & Plan Admission and Anticipated Discharge Date Admission Date: June 15, 2021 Results & Data ([facility]) Vital Signs (Past 12 Hours) Vital Signs Temp Pulse Resp BP Pulse Ox 06/16/21 11:02 101 H 100 06/16/21 10:57 102 H 99 06/16/21 10:54 106 H 110/67 06/16/21 10:52 103 H 98 06/16/21 10:47 110 H 99 06/16/21 10:42 133 H 90 06/16/21 10:37 107 H 98 06/16/21 10:33 115 H 113/64 06/16/21 10:32 115 H 98 06/16/21 10:31 121 H 115/66 06/16/21 10:30 149 H 91 06/16/21 10:29 116 H 124/61 06/16/21 10:27 107 H 125/59 L 98 06/16/21 10:25 109 H 131/61 06/16/21 10:23 105 H 142/65 H 06/16/21 10:22 113 H 139/72 99 06/16/21 10:20 108 H 131/77 06/16/21 10:17 117 H 97 06/16/21 10:12 126 H 100 06/16/21 10:07 113 H 97 06/16/21 10:02 114 H 99 06/16/21 09:57 129 H 99 06/16/21 09:52 125 H 100 06/16/21 09:47 110 H 98 06/16/21 09:42 109 H 98 06/16/21 09:39 106 H 88 L 06/16/21 09:37 110 H 98 06/16/21 09:32 114 H 98 06/16/21 09:27 111 H 97 06/16/21 09:24 112 H 124/84 06/16/21 09:22 133 H 97 02/05/22 09:17 116 H 97 06/16/21 09:12 110 H 98 06/16/21 09:07 118 H 99 06/16/21 09:02 119 H 98 06/16/21 08:57 120 H 98 06/16/21 08:52 118 H 98 06/16/21 08:47 117 H 98 06/16/21 08:42 112 H 98 06/16/21 08:39 138 H 90 06/16/21 08:37 116 H 98 06/16/21 08:32 115 H 98 06/16/21 08:27 113 H 98 06/16/21 08:22 118 H 97 06/16/21 08:17 106 H 99 06/16/21 08:13 36.5 C 18 98 06/16/21 08:12 117 H 99 06/16/21 08:07 113 H 99 06/16/21 08:02 116 H 99 06/16/21 07:57 114 H 99 06/16/21 07:52 112 H 98 06/16/21 07:47 115 H 99 06/16/21 07:42 110 H 99 06/16/21 07:39 114 H 122/71 06/16/21 07:37 121 H 99 06/16/21 07:32 115 H 99 06/16/21 07:27 129 H 98 06/16/21 07:23 130 H 122/69 06/16/21 07:22 125 H 99 06/16/21 07:17 137 H 100 06/16/21 07:12 119 H 100 06/16/21 07:09 126 H 125/75 06/16/21 07:07 125 H 100 06/16/21 07:02 119 H 100 06/16/21 07:00 16 06/16/21 06:57 116 H 99 06/16/21 06:54 121 H 130/85 06/16/21 06:52 119 H 99 06/16/21 06:47 115 H 99 06/16/21 06:42 121 H 100 06/16/21 06:39 116 H 125/72 06/16/21 06:37 102 H 98 06/16/21 06:32 109 H 98 06/16/21 06:27 114 H 98 06/16/21 06:25 118 H 127/75 06/16/21 06:22 125 H 99 06/16/21 06:17 111 H 98 06/16/21 06:15 16 06/16/21 06:12 115 H 97 06/16/21 06:08 120 H 123/69 06/16/21 06:07 104 H 97 06/16/21 06:02 114 H 98 06/16/21 05:58 37.1 C 16 06/16/21 05:57 119 H 95 06/16/21 05:53 125 H 119/75 06/16/21 05:52 120 H 97 06/16/21 05:47 121 H 98 06/16/21 05:42 112 H 97 06/16/21 05:39 117 H 113/67 06/16/21 05:37 114 H 98 06/16/21 05:32 109 H 98 06/16/21 05:30 16 06/16/21 05:27 104 H 97 06/16/21 05:23 116 H 124/64 06/16/21 05:22 101 H 97 06/16/21 05:17 120 H 97 06/16/21 05:15 16 06/16/21 05:12 110 H 98 06/16/21 05:09 112 H 124/58 L 06/16/21 05:07 120 H 98 06/16/21 05:02 105 H 97 06/16/21 04:57 113 H 97 06/16/21 04:53 109 H 122/60 06/16/21 04:52 110 H 98 06/16/21 04:47 113 H 97 06/16/21 04:42 114 H 98 06/16/21 04:39 112 H 122/67 06/16/21 04:37 110 H 97 06/16/21 04:32 110 H 99 06/16/21 04:30 37.5 C 16 06/16/21 04:27 119 H 99 06/16/21 04:23 118 H 110/68 06/16/21 04:22 110 H 98 06/16/21 04:17 102 H 98 06/16/21 04:12 110 H 98 06/16/21 04:09 118 H 106/65 06/16/21 04:07 117 H 99 06/16/21 04:02 119 H 98 02/05/22 04:00 16 06/16/21 03:57 97 H 97 06/16/21 03:53 110 H 108/56 L 06/16/21 03:52 98 H 97 06/16/21 03:47 97 H 97 06/16/21 03:42 94 H 98 06/16/21 03:38 103 H 106/55 L 06/16/21 03:37 101 H 98 06/16/21 03:32 98 H 98 06/16/21 03:30 16 06/16/21 03:27 101 H 99 06/16/21 03:24 131 H 132/64 06/16/21 03:22 135 H 100 06/16/21 03:17 145 H 100 06/16/21 03:15 16 06/16/21 03:12 127 H 100 06/16/21 03:10 100 H 113/57 L 06/16/21 03:07 104 H 100 06/16/21 03:02 104 H 100 06/16/21 02:57 90 100 06/16/21 02:54 104 H 111/60 06/16/21 02:52 91 H 100 06/16/21 02:47 110 H 126/60 100 06/16/21 02:44 106 H 89 L 06/16/21 02:42 105 H 100 06/16/21 02:40 118 H 128/70 06/16/21 02:39 113 H 138/79 06/16/21 02:37 117 H 100 06/16/21 02:36 107 H 138/86 06/16/21 02:35 111 H 86 L 06/16/21 02:34 116 H 137/82 06/16/21 02:32 118 H 99 06/16/21 02:30 18 06/16/21 02:27 116 H 100 06/16/21 02:24 36.8 C 117 H 18 134/80 06/16/21 02:22 117 H 100 06/16/21 02:17 111 H 97 06/16/21 02:12 108 H 97 06/16/21 02:09 108 H 140/77 06/16/21 02:07 107 H 98 06/16/21 02:02 111 H 98 06/16/21 01:57 105 H 98 06/16/21 01:54 111 H 133/76 06/16/21 01:52 107 H 98 06/16/21 01:47 118 H 99 06/16/21 01:45 16 06/16/21 01:42 116 H 98 06/16/21 01:38 116 H 130/72 06/16/21 01:37 113 H 98 06/16/21 01:32 110 H 98 06/16/21 01:30 16 06/16/21 01:27 107 H 98 06/16/21 01:23 114 H 127/74 06/16/21 01:22 109 H 98 06/16/21 01:17 109 H 98 06/16/21 01:12 111 H 99 06/16/21 01:10 125 H 133/73 06/16/21 01:07 108 H 98 06/16/21 01:02 103 H 98 06/16/21 01:00 16 06/16/21 00:57 116 H 98 06/16/21 00:53 122 H 128/80 06/16/21 00:52 119 H 97 06/16/21 00:47 155 H 77 L 06/16/21 00:40 125 H 100 06/16/21 00:39 115 H 118/66 06/16/21 00:35 106 H 98 06/16/21 00:30 115 H 16 100 06/16/21 00:25 117 H 116/65 99 06/16/21 00:20 37.4 C 127 H 16 98 06/16/21 00:15 97 H 95 06/16/21 00:10 100 H 95 06/16/21 00:09 103 H 102/57 L 06/16/21 00:05 99 H 94 06/16/21 00:00 98 H 16 96 06/15/21 23:55 108 H 96 06/15/21 23:53 101 H 105/57 L 06/15/21 23:50 101 H 96 06/15/21 23:45 97 H 96 06/15/21 23:40 97 H 96 06/15/21 23:39 102 H 100/57 L 06/15/21 23:35 100 H 97 06/15/21 23:30 97 H 16 97 06/15/21 23:25 102 H 98 06/15/21 23:24 110 H 110/56 L 06/15/21 23:20 109 H 99 06/15/21 23:15 117 H 16 100 06/15/21 23:10 103 H 99 06/15/21 23:09 112 H 103/57 L 06/15/21 23:05 97 H 97 Coding Level of Care Code None
--- NOTE | 2021-06-16 12:10 | Labor Progress Brief Note ---
Date of Service June 16, 2021 Subjective After redose of epidural, patient is more comfortable and feeling better able to push. FHT 110-120s, mod variability, occ decel with ctx Ctx Q 2-4 min Fetus +2 to +3 station, making progress with pushing. Hopeful for . Discussed with patient, she would like to continue pushing and is trying to avoid if at all possible. Assessment & Plan Admission and Anticipated Discharge Date Admission Date: June 15, 2021 Results & Data ([facility]) Vital Signs (Past 12 Hours) Vital Signs Temp Pulse Resp BP Pulse Ox 06/16/21 12:07 136 H 98 06/16/21 12:02 131 H 99 06/16/21 12:01 143 H 90 06/16/21 11:57 130 H 99 06/16/21 11:52 120 H 99 06/16/21 11:47 122 H 98 06/16/21 11:42 116 H 99 06/16/21 11:37 124 H 99 06/16/21 11:34 108 H 124/71 06/16/21 11:32 119 H 100 06/16/21 11:27 119 H 100 06/16/21 11:24 107 H 127/67 06/16/21 11:22 107 H 98 06/16/21 11:17 101 H 99 06/16/21 11:15 111 H 124/69 06/16/21 11:12 100 H 100 06/16/21 11:07 95 H 99 06/16/21 11:04 103 H 118/63 06/16/21 11:02 101 H 100 06/16/21 10:57 102 H 99 06/16/21 10:54 106 H 110/67 06/16/21 10:52 103 H 98 06/16/21 10:47 110 H 99 06/16/21 10:42 133 H 90 06/16/21 10:37 107 H 98 06/16/21 10:33 115 H 113/64 06/16/21 10:32 115 H 98 06/16/21 10:31 121 H 115/66 06/16/21 10:30 149 H 91 06/16/21 10:29 116 H 124/61 06/16/21 10:27 107 H 125/59 L 98 06/16/21 10:25 109 H 131/61 06/16/21 10:23 105 H 142/65 H 06/16/21 10:22 113 H 139/72 99 06/16/21 10:20 108 H 131/77 06/16/21 10:17 117 H 97 06/16/21 10:12 126 H 100 06/16/21 10:07 113 H 97 06/16/21 10:02 114 H 99 06/16/21 09:57 129 H 99 06/16/21 09:52 125 H 100 06/16/21 09:47 110 H 98 06/16/21 09:42 109 H 98 06/16/21 09:39 106 H 88 L 06/16/21 09:37 110 H 98 06/16/21 09:32 114 H 98 06/16/21 09:27 111 H 97 06/16/21 09:24 112 H 20 124/84 06/16/21 09:22 133 H 97 06/16/21 09:17 116 H 97 06/16/21 09:12 110 H 98 06/16/21 09:07 118 H 99 06/16/21 09:02 119 H 98 06/16/21 08:57 120 H 98 06/16/21 08:52 118 H 98 06/16/21 08:47 117 H 98 06/16/21 08:42 112 H 98 06/16/21 08:39 138 H 90 06/16/21 08:37 116 H 98 06/16/21 08:32 115 H 98 06/16/21 08:27 113 H 98 06/16/21 08:22 118 H 97 06/16/21 08:17 106 H 99 06/16/21 08:13 36.5 C 18 98 06/16/21 08:12 117 H 99 06/16/21 08:07 113 H 99 06/16/21 08:02 116 H 99 06/16/21 07:57 114 H 99 06/16/21 07:52 112 H 98 06/16/21 07:47 115 H 99 06/16/21 07:42 110 H 99 06/16/21 07:39 114 H 122/71 06/16/21 07:37 121 H 99 06/16/21 07:32 115 H 99 06/16/21 07:27 129 H 98 06/16/21 07:23 130 H 122/69 02/05/22 07:22 125 H 99 06/16/21 07:17 137 H 100 06/16/21 07:12 119 H 100 06/16/21 07:09 126 H 125/75 06/16/21 07:07 125 H 100 06/16/21 07:02 119 H 100 06/16/21 07:00 16 06/16/21 06:57 116 H 99 06/16/21 06:54 121 H 130/85 06/16/21 06:52 119 H 99 06/16/21 06:47 115 H 99 06/16/21 06:42 121 H 100 06/16/21 06:39 116 H 125/72 06/16/21 06:37 102 H 98 06/16/21 06:32 109 H 98 06/16/21 06:27 114 H 98 06/16/21 06:25 118 H 127/75 06/16/21 06:22 125 H 99 06/16/21 06:17 111 H 98 06/16/21 06:15 16 06/16/21 06:12 115 H 97 06/16/21 06:08 120 H 123/69 06/16/21 06:07 104 H 97 06/16/21 06:02 114 H 98 06/16/21 05:58 37.1 C 16 06/16/21 05:57 119 H 95 06/16/21 05:53 125 H 119/75 06/16/21 05:52 120 H 97 06/16/21 05:47 121 H 98 06/16/21 05:42 112 H 97 06/16/21 05:39 117 H 113/67 06/16/21 05:37 114 H 98 06/16/21 05:32 109 H 98 06/16/21 05:30 16 06/16/21 05:27 104 H 97 06/16/21 05:23 116 H 124/64 06/16/21 05:22 101 H 97 06/16/21 05:17 120 H 97 06/16/21 05:15 16 06/16/21 05:12 110 H 98 06/16/21 05:09 112 H 124/58 L 06/16/21 05:07 120 H 98 06/16/21 05:02 105 H 97 06/16/21 04:57 113 H 97 06/16/21 04:53 109 H 122/60 06/16/21 04:52 110 H 98 06/16/21 04:47 113 H 97 06/16/21 04:42 114 H 98 06/16/21 04:39 112 H 122/67 06/16/21 04:37 110 H 97 06/16/21 04:32 110 H 99 06/16/21 04:30 37.5 C 16 06/16/21 04:27 119 H 99 06/16/21 04:23 118 H 110/68 06/16/21 04:22 110 H 98 06/16/21 04:17 102 H 98 06/16/21 04:12 110 H 98 06/16/21 04:09 118 H 106/65 06/16/21 04:07 117 H 99 06/16/21 04:02 119 H 98 06/16/21 04:00 16 06/16/21 03:57 97 H 97 06/16/21 03:53 110 H 108/56 L 06/16/21 03:52 98 H 97 06/16/21 03:47 97 H 97 06/16/21 03:42 94 H 98 06/16/21 03:38 103 H 106/55 L 06/16/21 03:37 101 H 98 06/16/21 03:32 98 H 98 06/16/21 03:30 16 06/16/21 03:27 101 H 99 06/16/21 03:24 131 H 132/64 06/16/21 03:22 135 H 100 06/16/21 03:17 145 H 100 06/16/21 03:15 16 06/16/21 03:12 127 H 100 06/16/21 03:10 100 H 113/57 L 06/16/21 03:07 104 H 100 06/16/21 03:02 104 H 100 06/16/21 02:57 90 100 06/16/21 02:54 104 H 111/60 06/16/21 02:52 91 H 100 06/16/21 02:47 110 H 126/60 100 06/16/21 02:44 106 H 89 L 06/16/21 02:42 105 H 100 06/16/21 02:40 118 H 128/70 06/16/21 02:39 113 H 138/79 06/16/21 02:37 117 H 100 06/16/21 02:36 107 H 138/86 06/16/21 02:35 111 H 86 L 06/16/21 02:34 116 H 137/82 06/16/21 02:32 118 H 99 06/16/21 02:30 18 06/16/21 02:27 116 H 100 06/16/21 02:24 36.8 C 117 H 18 134/80 06/16/21 02:22 117 H 100 06/16/21 02:17 111 H 97 06/16/21 02:12 108 H 97 06/16/21 02:09 108 H 140/77 06/16/21 02:07 107 H 98 06/16/21 02:02 111 H 98 06/16/21 01:57 105 H 98 06/16/21 01:54 111 H 133/76 06/16/21 01:52 107 H 98 06/16/21 01:47 118 H 99 06/16/21 01:45 16 06/16/21 01:42 116 H 98 06/16/21 01:38 116 H 130/72 06/16/21 01:37 113 H 98 06/16/21 01:32 110 H 98 06/16/21 01:30 16 06/16/21 01:27 107 H 98 06/16/21 01:23 114 H 127/74 06/16/21 01:22 109 H 98 06/16/21 01:17 109 H 98 06/16/21 01:12 111 H 99 06/16/21 01:10 125 H 133/73 06/16/21 01:07 108 H 98 06/16/21 01:02 103 H 98 06/16/21 01:00 16 06/16/21 00:57 116 H 98 06/16/21 00:53 122 H 128/80 06/16/21 00:52 119 H 97 06/16/21 00:47 155 H 77 L 06/16/21 00:40 125 H 100 06/16/21 00:39 115 H 118/66 06/16/21 00:35 106 H 98 06/16/21 00:30 115 H 16 100 06/16/21 00:25 117 H 116/65 99 06/16/21 00:20 37.4 C 127 H 16 98 06/16/21 00:15 97 H 95 06/16/21 00:10 100 H 95 Coding Level of Care Code None
[2021-06-16] MEDS ORDERED: LIDOCAINE 1% LOCAL 20 ML VIAL ONE (14:38)
[2021-06-16] MEDS ORDERED: KETOROLAC 30 MG/ML VIAL ONE (14:42)
--- NOTE | 2021-06-16 15:09 | Delivery Summary ---
Vaginal Delivery Summary Date of Service June 16, 2021 Vaginal Delivery Summary and 3rd Degree LAC Vaginal Delivery Summary: Pre-delivery diagnoses: 31yo @ 40 05/18, spontaneous labor Post-delivery diagnoses: same Procedure: spontaneous vaginal delivery Surgeon: Marlene Li DO Complications: none Findings: Viable female . Apgars: . Weight 7# 7.5oz. Estimated blood loss: 300ml Description of delivery: The patient progressed to complete with epidural anesthesia. She pushed, however continued to complain of left hip pain. Ultimately, epidural was redosed and she gained relief and then rested prior to beginning pushing again. She then pushed to spontaneously vaginally delivered a viable from the cephalic presentation. The head delivered in ROP position. No nuchal cord. The anterior shoulder delivered, followed by the posterior shoulder, followed by the body. Terminal meconium. The baby was placed on mother's abdomen the cord was doubly clamped and cut and the baby was immediately handed off to the nursery team, as the infant did not immediately cry. A segment was retained for cord gases. Cord blood was obtained. The placenta was delivered spontaneously intact with a 3-vessel cord. The uterus and vagina were swept of clots and debris. IV pitocin was given. The uterus became firm. The cervix, vagina, and perineum were inspected. A 3rd degree perineal laceration was noted. Thorough rectal exam revealed no damage to the anal mucosa. Bilateral edges of anal sphincter muscle were identified and grasped with Allis clamps. Using [id number] stitches of 3-0 Chromic, the anal sphincter was reapproximated. Rectal exam revealed good support after repair. The remaining perineal laceration was reapproximated with 3-0 Vicryl in standard fashion. Excellent hemostasis was observed. The mother and baby are recovering in stable and good condition in the room. Sponge, needle and instrument counts were correct x 2. Baby was taken to nursery after delivery for further evaluation/management with absorber operator, who then came back to the room to give parents an update. I also reviewed the above events with patient/ - that while we hoped to follow the plans laid out in her plan of immediate [id number] time and delayed cord clamping, since baby was not vigorous at time of , I felt that clinically baby needed to be handed off immediately to peds team for resuscitation. DO OSWALDO MonaeDivya [facility] [place] [facility] [place] Delivery Charge Vaginal Delivery Codes: 90750 global code for the antepartum, delivery, and post- Delivery Type Details: and 3rd Degree LAC
[2021-06-16] MEDS ORDERED: KETOROLAC 30 MG/ML VIAL IV ONE (15:25)
[2021-06-16] MEDS ORDERED: BENZOCAINE 20% AER SPR 82.5 GM CAN EXT PRN (15:55)
[2021-06-16] MEDS ORDERED: bisacodyL 10 MG SUPP PR PRN (15:55)
[2021-06-16] MEDS ORDERED: ACETAMINOPHEN 325 MG TAB PO PRN (15:55)
[2021-06-16] MEDS ORDERED: MEASLES, MUMPS & RUBELLA VIRUS VIAL SQ ONE (15:55)
[2021-06-16] MEDS ORDERED: OXYTOCIN 30 UNITS/500 ML BAG IV PRN (15:55)
[2021-06-16] MEDS ORDERED: SUPERCREAM 0.870% 15 GM JAR EXT PRN (15:55)
[2021-06-16] MEDS ORDERED: DIPHTHERIA/TETANUS/PERTUSSIS 0.5 ML SYR/VIAL IM ONE (15:55)
[2021-06-16] MEDS ORDERED: oxyCODONE/ACETAMINOPHEN 5mg/325mg TAB PO PRN (15:55)
[2021-06-16] MEDS ORDERED: HYDROCORTISONE ACETATE 25 MG SUPP PR PRN (15:55)
--- NOTE | 2021-06-16 18:12 | Anesthesia Procedure Note ---
Date of Service June 16, 2021 Anesthesia Post Epidural Note Vital Signs Vital Signs: Temp Pulse Resp BP Pulse Ox 36.6 C 137 H 20 137/76 100 06/16/21 15:02 06/16/21 17:04 06/16/21 16:00 06/16/21 16:05 06/16/21 17:04 Pain Intensity Abdomen: Pain Intensity: 2 Notes Mental Status: alert / awake / arousable and participated in evaluation Nausea / Vomiting: adequately controlled Pain: adequately controlled Airway Patency, RR, SpO2: stable & adequate BP & HR: stable & adequate Hydration State: stable & adequate Neuraxial Anesthesia: was administered and sensory block is resolving Anesthetic Complications: no major complications apparent Epidural: Removed without complications and With tip intact
[2021-06-16] MEDS: IBUPROFEN 600 MG TAB PO PRN (20:36)
[2021-06-16] MEDS: DOCUSATE SODIUM 100 MG CAP PO SCH (20:36)
[2021-06-17] MEDS: IBUPROFEN 600 MG TAB PO PRN ×6 (00:01→23:28)
[2021-06-17 07:00] LABS: Hematocrit (blood only) 25.4 % (37-47); Hemoglobin 8.1 g/dL (12.0-16.0)
--- NOTE | 2021-06-17 08:11 | Obstetrical Progress Note ---
Date of Service June 17, 2021 Assessment & Plan (1) Supervision of normal intrauterine in primigravida: PPD#1 doing well. Hgb drop to 8.1, not having current vaginal bleeding. Will recheck Hgb later today. Discussed stool softeners. Itchy area on right arm, benadryl cream ordered. Subjective Ambulation: ambulating normally Voiding: no voiding problems Diet Tolerance:: regular diet Lochia:: Moderate Feeding Type:: breast feeding Review of Systems All systems reviewed & are unremarkable except as noted in HPI & below Physical Exam Constitutional WD/WN, vitals as above no acute distress Respiratory normal respiratory effort Cardiovascular Rate/Rhythm: regular rate and regular rhythm Gastrointestinal (Abdomen) Inspection/Auscultation: abdomen normal to inspection; abdomen not distended Percussion/Palpation: abdomen soft Genitourinary OB Exam Abdomen: + fundal height Fundus: + firm; not tender Results & Data ([facility]) Vital Signs (Past 12 Hours) Vital Signs Temp Pulse Resp BP Pulse Ox 06/17/21 03:45 36.4 C L 91 H 18 122/83 06/16/21 23:50 36.5 C 101 H 18 116/77 06/16/21 20:35 36.6 C 98 H 18 127/83 98
[2021-06-17] MEDS: PRENATAL VITAMIN 1 TAB PO SCH (08:31)
[2021-06-17] MEDS: DOCUSATE SODIUM 100 MG CAP PO SCH ×2 (08:31→19:58)
[2021-06-17 12:08] LABS: Hemoglobin 8.5 g/dL (12.0-16.0)
[2021-06-17] MEDS ORDERED: bisacodyL 5 MG TABEC PO SCH (20:00)
--- NOTE | 2021-06-18 06:07 | Obstetrical Progress Note ---
Date of Service <Swetha Gil DO - Last Filed: 06/18/21 06:26> June 18, 2021 Assessment & Plan <Swetha Gil - Last Filed: 06/18/21 06:26> (1) Encounter for care and examination after delivery: 31 yo post op day2 from , doing well. -Continue routine post care. -vital signs reviewed and WNL (Tmax 37.1) heart rate remains tachycardic, patient denies pain, never tested for hypothyroidism -Blood Type O+, GBS-, Rubella nonimmune -Encourage ambulation, monitor and control pain with Motrin, tylenol PRN, resume regular diet, monitor lochia -encourage breast feeding -hemoglobin 8.5 -patient comfortable with discharge today Day #:: 2 <Marlene Li, - Last Filed: 06/18/21 06:56> (1) Encounter for care and examination after delivery: Subjective <Swetha Gil - Last Filed: 06/18/21 06:26> Ambulation: ambulating normally Voiding: no voiding problems and no incontinence Passing Gas:: Yes Diet Tolerance:: regular diet Lochia:: Moderate Feeding Type:: breast feeding Current Pain Level(1-10): 0 Review of Systems Denies fever, chills, sweats Denies shortness of breath, difficulty breathing, chest pain, palpitations, chest pressure. Denies breast pain. Denies dysuria. Denies headache or changes in vision. Physical Exam <Swetha Gil - Last Filed: 06/18/21 06:26> General: Alert, oriented. No acute distress. Cardiac: Regular rate and rhythm, no murmurs/rubs/gallops. Respiratory: Clear to auscultation bilaterally a/p, no wheezes/rales/rhonchi. No increased work of breathing. Symmetrical chest rise. No respiratory distress. Abdomen: Soft, nontender, nondistended. Bowel sounds present. Uterus: Uterine fundus firm, palpable 2 cm below umbilicus. Lower Extremities: No lower extremity edema or swelling. No deep calf pain. Craig's negative bilaterally.. Results & Data ([facility]) <Swetha Jeffery - Last Filed: 06/18/21 06:26> Vital Signs (Past 12 Hours) Vital Signs Temp Pulse Resp BP Pulse Ox 06/17/21 23:30 36.6 C 114 H 18 129/86 06/17/21 19:55 36.5 C 120 H 18 140/87 99 <Marlene Li DO - Last Filed: 06/18/21 06:56> Co-Signing Physician Notes Resident Physician Supervision Note: I was present with Dr. Gil during the history and exam. I discussed the case with the resident and agree with the findings and plan as documented in the note. Any exceptions or clarifications are listed here: PPD#2 doing well. Still having itching on right arm, also left shoulder. Benadryl cream helped somewhat. Will give PO benadryl. Documented By: Marlene Li DO Resident Activity Tracking <Swetha Gil DO - Last Filed: 06/18/21 06:26> Resident Involvement: Resident Care Provided Care Provided: Adult Hospital Medicine
[2021-06-18] MEDS ORDERED: diphenhydrAMINE Capsule 25 MG CAP PO ONE (06:43)
[2021-06-18] MEDS: PRENATAL VITAMIN 1 TAB PO SCH (07:58)
[2021-06-18] MEDS: DOCUSATE SODIUM 100 MG CAP PO SCH (07:59)
[2021-06-18] MEDS: IBUPROFEN 600 MG TAB PO PRN (08:33)
== END 2021-06-18 13:08 | disposition home or self-care (01) | DRG 768 ==
LOC: OPB 07:57 → 4S1 08:04 → 4S2 06-16 19:43

== ENCOUNTER 2024-01-12 19:07 | Inpatient (IN) ==
[2024-01-12] MEDS ORDERED: LIDOCAINE 1% LOCAL 20 ML VIAL INFIL PRN (20:30)
--- NOTE | 2024-01-12 20:46 | History & Physical Report ---
Date of Service January 12, 2024 Assessment & Plan (1) Gestational diabetes mellitus (GDM) affecting , antepartum: Plan: Sophy is a 33-year-old G3, P1 currently at 34 weeks 6 days gestational age with premature rupture of membranes. Rupture confirmed by AmniSure. Discussed options for delivery including transfer to a tertiary center with a NICU versus delivery here at [facility]. Discussed delivery plan with remote sensing research scientist beforehand who was in agreement with patient staying for delivery here as long as the patient knew there was a slight risk of transfer and hospital stay would likely be 72 to 96 hours. Discussed these concerns with the patient who is agreeable with staying for delivery. Reviewed option for betamethasone discussed risks and benefits and patient and partner declined betamethasone. GBS positive will start penicillin. Will start oxytocin for induction of labor. Can get epidural as preferred. Diet-controlled gestational diabetic and will check a single blood sugar as long as it is normal. Vitals within normal limits. All questions answered to the patient satisfaction (2) Carrier of group B Streptococcus: (3) Encounter for supervision of normal in multigravida: (4) premature rupture of membranes (PPROM) with onset of labor after 24 hours of rupture in third trimester, antepartum: History of Present Illness Primary Care Provider: NO PCP Sophy is a 33-year-old G3, P1 currently at 34 weeks 6 days gestational age presents with leakage of fluid. Denying painful contractions or vaginal bleeding. Noting good movement. complicated by GBS positive status and by diet-controlled gestational diabetes. Reports blood sugars have been well-controlled throughout. Most recent growth at 32 weeks was 46%. OB Labs: Blood Type O Positive 07/02/23 Antibody Screen NEGATIVE 07/02/23 Hemoglobin 12.5 g/dl (12.0-16.0) 11/27/23 Hematocrit 38.0 % (37.0-47.0) 11/27/23 Mean Corpuscular Volume 84.2 fL (80.0-100.0) 07/02/23 Platelet Count 357 K/uL (130-400) 07/02/23 Rubella IgG Antibody Immune (Immune) 07/02/23 Rapid Plasma Reagin Nonreactive (Nonreactive) 07/02/23 Hepatitis B Surface Antigen Neg (Neg) 11/06/20 Hepatitis B Surface Antigen. NON-REACTIVE (NON-REACTIVE) 07/02/23 Hepatitis C Antibody (EIA) NON-REACTIVE (NON-REACTIVE) 07/02/23 HIV (1&2) Ab and P24 Ag, 4th Gener Neg (Neg) 11/06/20 HIV (1&2) Ag and Ab Confirmation NON-REACTIVE (NON-REACTIVE) 07/02/23 Glucose 1 Hour 50 gm Load 158 mg/dl (70-130) H 11/27/23 OB Optional Labs: Chlamydia trachomatis RNA Not Detected (NotDetected) 07/02/23 Neisseria gonorrhoeae RNA Not Detected (NotDetected) 07/02/23 Labs Reviewed: Negative prior carrier screening--mln Declines cfdna--mln failed 28 week 2 hr gtt--akh Allergies Allergy/AdvReac Type Severity Reaction Status Date / Time No Known Allergies Allergy Verified 01/12/24 19:25 Home Medications Medication Instructions Recorded Confirmed Type 21-iron fu-folic acid 1 tab PO DAILY 06/25/23 01/12/24 History [ Complete] acetone (urine) test (Ketone Urine #50 ea 12/31/23 01/06/24 Rx Test strips) blood sugar diagnostic (OneTouch #150 ea 12/31/23 01/06/24 Rx Verio test strips) blood-glucose meter (OneTouch #1 ea 12/31/23 01/06/24 Rx Verio Reflect Meter) lancets 33 gauge (OneTouch Delica #150 ea 12/31/23 01/06/24 Rx Plus Lancet) Patient History Medical History (Updated 01/12/24 @ 20:42 by Harpreet Longoria MD) Varicella vaccination No known problems Surgical History H/O wisdom tooth extraction Family History Family/Other Breast cancer Mother Thyroid cancer Denies family history of Ovarian cancer Prostate cancer Myocardial infarction Colorectal cancer Uterine cancer Social History Smoking Status: Never smoker Second Hand Exposure: No; Do You Dip or Chew Tobacco: No; Hx Alcohol Use: No Hx Substance Use: No Preferred Language: Icelandic Communication Ability: Effective Visual Impairment: No Limitations Hearing Ability: Normal Team Psychologist Required: No Beliefs That Will Affect Care: None marital status: marital status details: Teto (30) [phone] Current Living Situation: Spouse and Family Current Living Situation Comment: lives with spouse, daughter, dog, 2 cats, spouse to change litter. 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 [employer] Other Information That Helps Us Care for You: No other: graduated from [employer] Childhood Exposure to Second-Hand Smoke: No Diet: regular Assistive Devices: None Physical Exam Genitourinary: Manual OB Exam: + cervical dilation (1.5), + cervical effacement 50%, + station -2 and + amniotic fluid (Positive AmniSure) clear OB Exam Monitor Tracing: + external FHT monitor used, + external uterine monitor used, + category I and + normal FHT variability Results & Data Vital Signs (Past 12 Hours) Vital Signs Temp Pulse Resp BP 01/12/24 19:29 108 H 116/75 01/12/24 19:18 36.8 C 107 H 18 133/79 Coding Level of Care Code None Diagnoses Gestational diabetes mellitus (GDM) affecting , antepartum O24.419 Carrier of group B Streptococcus Z22.330 Encounter for supervision of normal in multigravida Z34.80 premature rupture of membranes (PPROM) with onset of labor after 24 hours of rupture in third trimester, antepartum O42.113
[2024-01-12] MEDS: PENICILLIN GK 6 MU in DEXTROSE 5% 250 ML IV STA (20:59)
[2024-01-12] MEDS: OXYTOCIN 30 UNITS/NSS 30 UNITS/500 ML BAG IV PRN (21:00)
[2024-01-12] MEDS: LACTATED RINGER'S 1,000 ML IV PRN (21:10)
[2024-01-12 21:36] LABS: Hemoglobin 11.9 g/dl (12.0-16.0); Mean Corpuscular Hemoglobin 27.9 pg (25.0-34.0); Mean Corpuscular Hgb Conc 32.2 g/dL (32.0-36.0); Mean Corpuscular Volume 86.7 fL (80.0-100.0); Mean Platelet Volume 10.6 fL (9.4-12.4); Platelet Count 289 K/uL (130-400); RDW Coefficient of Variation 13.2 % (11.5-14.5); RDW Standard Deviation 41.1 fL (36.4-46.3); Red Blood Count 4.27 M/uL (4.20-5.40); White Blood Count 12.97 K/ul (4.8-10.8)
[2024-01-13] MEDS: PENICILLIN GK 3 MU in DEXTROSE 5% 100 ML IV PRN (01:05)
[2024-01-13] MEDS ORDERED: NALOXONE HCL 1 MG in SODIUM CHLORIDE 0.9% 1,000 ML IV PRN (01:26)
[2024-01-13] MEDS ORDERED: fentaNYL citrate PF 100 MCG/2 ML VIAL EPI PRN (01:26)
[2024-01-13] MEDS ORDERED: diphenhydrAMINE 50 MG/ML VIAL IV PRN (01:26)
[2024-01-13] MEDS ORDERED: ePHEDrine sulfate 50 MG/ML AMP IV PRN (01:26)
[2024-01-13] MEDS ORDERED: NALOXONE HCL 0.4 MG/1 ML VIAL/CARP IV PRN (01:26)
[2024-01-13] MEDS ORDERED: ROPIVACAINE 0.5% PF 5 MG/ML 20 ML VIAL EPI PRN (01:26)
[2024-01-13] MEDS ORDERED: SODIUM CHLORIDE 0.9% PF INJ 10 ML VIAL EPI PRN (01:26)
[2024-01-13] MEDS ORDERED: fentANYL 2 MCG/ML BUPIVacaine 0.125%-NSS 100ML BAG EPI PRN (01:26)
[2024-01-13] MEDS ORDERED: BUPIVACAINE 0.25% PF 30 ML VIAL EPI PRN (01:26)
[2024-01-13] MEDS ORDERED: NALBUPHINE HCL INJ 10 MG/ML AMP IV PRN (01:26)
[2024-01-13] MEDS ORDERED: LIDOCAINE 2% MPF LOCAL 5 ML VIAL EPI PRN (01:26)
--- NOTE | 2024-01-13 01:26 | Anesthesiology Consultation ---
Date of Service January 13, 2024 Assessment & Plan (1) Encounter for pre-operative examination: Chart Review Chart Review: Patient NOT seen in Pre Admission Testing and Acceptable Risk for Labor Epidural Consults Requested none History Height/Weight Height: 5 ft 1 in Weight: 72.121 kg Allergies Allergy/AdvReac Type Severity Reaction Status Date / Time No Known Allergies Allergy Verified 01/12/24 19:25 Medications Home Medications Medication Instructions Recorded Confirmed Last Taken 21-iron fu-folic acid 1 tab PO DAILY 06/25/23 01/12/24 01/12/24 [ Complete] acetone (urine) test (Ketone Urine #50 ea 12/31/23 01/06/24 Unknown Test strips) blood sugar diagnostic (OneTouch #150 ea 12/31/23 01/06/24 Unknown Verio test strips) blood-glucose meter (OneTouch #1 ea 12/31/23 01/06/24 Unknown Verio Reflect Meter) lancets 33 gauge (OneTouch Delica #150 ea 12/31/23 01/06/24 Unknown Plus Lancet) Active Medications Generic Name Dose Route Start Last Admin Trade Name Freq PRN Reason Stop Dose Admin Lactated Ringer's 1,000 mls @ 125 mls/hr 01/12/24 20:30 01/13/24 01:13 Lr IV 01/14/24 20:29 999 mls/hr .Q8H PRN Infusion L&D Protocol Protocol Penicillin G Potassium 3 mu/ 106 mls @ 100 mls/hr 01/12/24 23:30 01/13/24 01:05 Dextrose IV 01/22/24 23:29 100 mls/hr Q4H PRN Administration GBS(+) Until Delivery Oxytocin 30 units in 500 mls @ 10 mls/hr 01/12/24 20:34 01/13/24 00:34 Pitocin 30 Units/Nss IV 01/14/24 20:33 0.6 units/hr .Q24H PRN 10 mls/hr Labor Induction/Augmentation Titration Protocol 0.6 UNITS/HR Past Medical History Medical History Varicella vaccination No known problems Past Family History Family History Family/Other Breast cancer Maternal great grandmother Mother Thyroid cancer Denies family history of Ovarian cancer Prostate cancer Myocardial infarction Colorectal cancer Uterine cancer Past Surgical History Surgical History H/O wisdom tooth extraction Social History Smoking Status: Never smoker Do You Dip or Chew Tobacco: No Hx Alcohol Use: No Hx Substance Use: No substance use type: does not use Physical Exam Vital Signs Last Vital Signs Temp 98.8 F 01/13/24 00:13 Pulse 100 H 01/13/24 00:18 Resp 16 01/13/24 00:18 BP 112/74 01/13/24 00:18 Testing Laboratory Results 01/12/24 20:53 01/12/24 20:44 POC Glucose 81
[2024-01-13] MEDS: BUPIVACAINE 0.25% PF 30 ML VIAL ONE (01:53)
[2024-01-13] MEDS: LIDOCAINE 2%/EPINEPHRINE 1:200,000 20 ML PF ONE (01:53)
[2024-01-13] MEDS: fentANYL 2 MCG/ML BUPIVacaine 0.125%-NSS 100ML BAG ONE (01:53)
[2024-01-13] MEDS: fentaNYL citrate PF 100 MCG/2 ML VIAL ONE (02:20)
--- NOTE | 2024-01-13 02:25 | Anesthesia Procedure Note ---
Date of Service January 13, 2024 Anesthesia Epidural Re-Dose Vital Signs Temp Pulse Resp BP Pulse Ox 97.5 F L 84 16 85/48 L 99 01/13/24 02:02 01/13/24 02:19 01/13/24 00:18 01/13/24 02:19 01/13/24 02:19 Notes Pain Intensity: 8 Dilatation (cm): 3.0 Effacement (%): 100 Called by nursing to evaluate epidural as the patient is having increased pain. The epidural was re-dosed with the following medications (all medications via epidural route) after negative aspiration of the epidural catheter for CSF/HEME. Bupivacaine (8ml) with 100 mcg Fentanyl After Epidural Re-Dose Mental Status: alert / awake / arousable Pain: improving with treatment Airway Patency, RR, SpO2: stable & adequate BP & HR: stable & adequate Additional Notes: left sided pain, inability to place on left side d/t intolerance
[2024-01-13] MEDS: SODIUM CHLORIDE 0.9% PF INJ 10 ML VIAL ONE (02:43)
[2024-01-13] MEDS: CALCIUM CARBONATE 500 MG CHEWABLE TAB PO PRN (02:45)
[2024-01-13] MEDS ORDERED: HYDROCORTISONE ACETATE 25 MG SUPP PR PRN (04:52)
[2024-01-13] MEDS ORDERED: OXYTOCIN 30 UNITS/NSS 30 UNITS/500 ML BAG IV PRN (04:52)
--- NOTE | 2024-01-13 04:54 | Delivery Summary ---
Vaginal Delivery Summary Date of Service January 13, 2024 Vaginal Delivery Summary and 2nd Degree LAC [facility] Vaginal Delivery Charge Delivery Type Details: and 2nd Degree LAC
--- NOTE | 2024-01-13 04:55 | Delivery Summary ---
Vaginal Delivery Summary Date of Service January 13, 2024 Vaginal Delivery Summary and 2nd Degree LAC Progressed to 10 cm dilated 100% effaced +2 station pushed over intact perineum with epidural anesthesia and delivered a viable male with weight pending Apgars of 8 and 9 at 1 and 5 minutes respectively. Head delivered without difficulty and there is noted to be a double tight nuchal that was not able to be reduced. Continued delivery was followed by shoulders and body without difficulty. Nuchal cord was then able to be reduced and was noted to be vigorous soon after delivery. At 1 minute delayed cord clamping was initiated. Cord blood was obtained. Attention turned to deliver the placenta which delivered intact three-vessel cord gentle cord traction. Inspection of perineum vagina and cervix there is noted to be a second-degree perineal laceration was repaired with 3-0 Vicryl traditional crown stitch. Needle sponge and instrument counts were correct at the completion of the case. Both mother and stable in the immediate post delivery period. No complications noted and blood loss per QBL [facility] Vaginal Delivery Charge Delivery Type Details: and 2nd Degree LAC
[2024-01-13] MEDS: ePHEDrine sulfate 50 MG/ML AMP ONE (05:02)
[2024-01-13] MEDS: OXYTOCIN 30 UNITS/NSS 30 UNITS/500 ML BAG IV PRN (05:43)
[2024-01-13] MEDS: PRENATAL VITAMIN 1 TAB PO SCH (08:55)
[2024-01-13] MEDS: BENZOCAINE 20% SPRY 85 APPLN/85 GM CAN EXT PRN (08:55)
[2024-01-13] MEDS: IBUPROFEN 600 MG TAB PO PRN (08:55)
[2024-01-13] MEDS: DOCUSATE SODIUM 100 MG CAP PO SCH (08:55)
[2024-01-13] MEDS: FERROUS SULFATE 325 MG TAB PO SCH (08:55)
--- NOTE | 2024-01-13 10:04 | Anesthesia Procedure Note ---
Date of Service January 13, 2024 Anesthesia Post Epidural Note Vital Signs Vital Signs: Temp Pulse Resp BP Pulse Ox 36.7 C 107 H 20 123/71 100 01/13/24 08:03 01/13/24 08:03 01/13/24 08:03 01/13/24 08:03 01/13/24 04:49 Pain Intensity Bilateral Lower Abdomen: Pain Intensity: 6 Notes Mental Status: alert / awake / arousable Nausea / Vomiting: adequately controlled Pain: adequately controlled Airway Patency, RR, SpO2: stable & adequate BP & HR: stable & adequate Hydration State: stable & adequate Neuraxial Anesthesia: was administered and sensory block is resolving Anesthetic Complications: no major complications apparent and Pt Satisfied with anesthetic care Epidural: Removed without complications and With tip intact
[2024-01-13] MEDS: LIDOCAINE 2%/EPINEPHRINE 1:200,000 20 ML PF EPI STA (11:58)
[2024-01-13] MEDS: fentaNYL citrate PF 100 MCG/2 ML VIAL EPI STA (11:58)
[2024-01-13] MEDS: SODIUM CHLORIDE 0.9% PF INJ 10 ML VIAL EPI STA (11:58)
[2024-01-13] MEDS: BUPIVACAINE 0.25% PF 30 ML VIAL EPI STA (11:58)
[2024-01-13] MEDS: ACETAMINOPHEN 500 MG TAB PO PRN (15:02)
[2024-01-13] MEDS: DIPHTHER/TETAN/PERTUS Vaccine (Tdap, Adol/Adult) 0.5mL IM ONE (15:03)
[2024-01-13] MEDS: ACETAMINOPHEN 325 MG TAB PO PRN (20:50)
--- NOTE | 2024-01-14 05:53 | Obstetrical Progress Note ---
Date of Service January 14, 2024 Assessment & Plan (1) Encounter for supervision of normal in multigravida: Plan Pt is 33 yo post- day 1 s/p Feel well today. Vital signs are stable Continue Post care Encourage ambulation and breast feeding Pain control with ibuprofen Hgb is stable Possible discharge home 01/15/24, follow up with Dr. Longoria in 6 weeks. Admission and Anticipated Discharge Date Admission Date: January 12, 2024 Subjective Pt is 33 yo post- day 1 s/p Ambulation: in room, short distances Voiding:voiding normally Passing gas: yes Diet tolerance:regular diet Lochia:bloody, no clots Feeding type: breast Current pain level: 0-3 /10 improved with ibuprofen Resting comfortably this morning in NAD. Denies ELDRIDGE, CP, SOB, N/V/D, LE pain/swelling. Review of Systems Review of Systems: As per HPI Physical Exam Constitutional: no acute distress Neck: normal visual inspection Respiratory: normal respiratory effort; no respiratory distress Auscultation: lungs clear to auscultation bilaterally Cardiovascular: Rate/Rhythm: regular rate and regular rhythm Heart Sounds: no murmur Gastrointestinal (Abdomen): normal bowel sounds, soft, nontender, no hepatosplenomegaly uterine fundus firm at umbilicus Skin: no rashes, warm and dry Neurologic: speech intact, no facial droop, moving all 4 extremities on command Psychiatric: Orientation: alert and oriented x 3 Results & Data Vital Signs (Past 12 Hours) Vital Signs Temp Pulse Resp BP Pulse Ox O2 Del Method 01/14/24 04:00 36.6 C 86 18 122/76 99 Room Air 01/13/24 23:08 36.6 C 86 18 124/78 99 Room Air 01/13/24 19:00 36.4 C L 94 H 18 116/80 99 Room Air
[2024-01-14] MEDS: bisacodyL 5 MG TABEC PO SCH (19:27)
[2024-01-14 19:29] VITALS: RESP 18
[2024-01-15] MEDS ORDERED: bisacodyL 10 MG SUPP PR PRN
[2024-01-15 05:03] VITALS: O2SAT 98
--- NOTE | 2024-01-15 06:03 | Obstetrical Progress Note ---
Date of Service January 15, 2024 Assessment & Plan (1) Encounter for supervision of normal in multigravida: Plan Pt is 33 yo , GBS positive, diet controlled GDM post- day 2 s/p at 35w6d Feel well today. Vital signs are stable. Pt is voiding and passing stool without problems. Encourage ambulation and breast feeding Pain control with ibuprofen 600mg PRN Discharge to home follow up with Dr. Longoria in 6 weeks. Admission and Anticipated Discharge Date Admission Date: January 12, 2024 Supervising Physician Co-Signing Physician Notes Resident Physician Supervision Note: I interviewed and examined the patient. Discussed with Dr. Nelson and agree with findings and plan as documented in the note. Any exceptions or clarifications are listed here: [None] Documented By: Lyubov Tan MD, FACOG Subjective Pt is 33 yo post- day 2 s/p at 35w6d Ambulation: in and out of room Voiding:voiding normally Passing gas: yes, 2 BM Diet tolerance:regular diet Lochia:bloody, no clots Feeding type: breast Current pain level: 0-2 /10 improved with ibuprofen Resting comfortably this morning in NAD. Denies ELDRIDGE, CP, SOB, N/V/D, LE pain/swelling. Review of Systems Review of Systems: As per HPI Physical Exam Constitutional: no acute distress Neck: normal visual inspection Respiratory: normal respiratory effort; no respiratory distress Auscultation: lungs clear to auscultation bilaterally Cardiovascular: Rate/Rhythm: regular rate and regular rhythm Heart Sounds: no murmur Gastrointestinal (Abdomen): normal bowel sounds, soft, nontender, no hepatosplenomegaly Uterine fundus firm at 1 cm below umbilicus Skin: no rashes, warm and dry Psychiatric: Orientation: alert and oriented x 3 Results & Data Vital Signs (Past 12 Hours) Vital Signs Temp Pulse Resp BP Pulse Ox O2 Del Method 01/15/24 03:30 36.4 C L 88 18 116/68 98 Room Air 01/14/24 19:28 36.5 C 70 18 109/72 100 Room Air Resident Activity Tracking Resident Involvement: Resident Care Provided Care Provided: Adult Hospital Medicine
[2024-01-15 12:18] VITALS: BP 116/77; PULSE 79; TEMP 98.4
== END 2024-01-15 15:30 | disposition home or self-care (01) | DRG 807 ==
LOC: OPB 19:07 → 4S1 19:09 → 4E2 01-13 09:04